=== PATIENT | female | born 2000 | race Caucasian/White ===

== ENCOUNTER 2022-10-21 14:07 | Emergency (ER) | payer BC ==
[2022-10-21 14:48] VITALS: BP 139/96; PULSE 70; RESP 20; TEMP 97.7
[2022-10-21] MEDS ORDERED: SODIUM CHLORIDE 0.9% 1,000 ML IV STA (19:13)
[2022-10-21] MEDS ORDERED: diphenhydrAMINE 50 MG/ML 1 ML VIAL IVP STA (19:13)
[2022-10-21] MEDS ORDERED: KETOROLAC 15 MG/ML 1 ML VIAL IVP STA (19:13)
[2022-10-21] MEDS ORDERED: DEXAMETHASONE SOD PHOSPHATE 10 MG/ML 1 ML VIAL IVP STA (19:13)
[2022-10-21] MEDS ORDERED: METOCLOPRAMIDE 5 MG/ML 2 ML VIAL IVP STA (19:13)
--- NOTE | 2022-10-21 19:15 | ED ---
Headache HPI - General Chief Complaint: Headache Stated Complaint: headache, shoulder pain Time Seen by Provider: 10/21/22 18:59 Source: patient, RN notes reviewed Mode of arrival: ambulatory Limitations: no limitations - History of Present Illness Initial Comments: This is a 22-year-old female who presents to the emergency department for a headache. States that she was at urgent care last night and was given a shot of Toradol. This resolved her symptoms temporarily, however they have since returned. The headache is primarily along the left church. She is unable to describe this pain, but states that it has been fairly persistent over the last several days, which has never happened before. However, she would not describe this as the worst headache of her life. Denies any associated photophobia, nausea, or vomiting. Feels like she has intermittent blurring of her vision in the left eye. She has no history of migraines. The provider at urgent care told her to come to the emergency department if symptoms worsen out of concern for possible temporal arteritis. She also requests evaluation for right shoulder pain that has been occurring intermittently over the last month. She feels like the shoulder keeps going in and out of place. She works at a [employer] and does a lot of bending and lifting. Denies any fevers, chills, sore throat, cough, dyspnea, chest pain, palpitations, abdominal pain, nausea, vomiting, diarrhea, or back pain. MD Complaint: headache Onset/Timin -: days(s) - Related Data Previous Rx's Medication Instructions Recorded dexAMETHasone [Decadron] 6 mg PO DAILY 4 Days #4 tablet 10/21/22 Allergies Allergy/AdvReac Type Severity Reaction Status Date / Time No Known Allergies Allergy Verified 10/21/22 14:47 Review of Systems ROS Statement: Those systems with pertinent positive or pertinent negative responses have been documented in the HPI. ROS Other: All systems not noted in ROS Statement are negative. Past Medical History Past Medical History: No Reported History History of Any Multi-Drug Resistant Organisms: None Reported Past Surgical History: No Surgical Hx Reported Past Psychological History: No Psychological Hx Reported Smoking Status: Vaper Past Alcohol Use History: Occasional Past Drug Use History: Marijuana General Exam Limitations: no limitations General appearance: alert, in no apparent distress Head exam: Present: atraumatic, normocephalic, normal inspection Eye exam: Present: normal appearance, PERRL, EOMI. Absent: scleral icterus, conjunctival injection, periorbital swelling Respiratory exam: Present: normal lung sounds bilaterally. Absent: respiratory distress, wheezes, rales, rhonchi, stridor Cardiovascular Exam: Present: regular rate, normal rhythm, normal heart sounds. Absent: systolic murmur, diastolic murmur, rubs, gallop, clicks Neurological exam: Present: alert, oriented X3, CN II-XII intact Psychiatric exam: Present: normal affect, normal mood Skin exam: Present: warm, dry, intact, normal color. Absent: rash Course Vital Signs 10/21/22 14:43 Temperature 97.7 F Pulse Rate 70 Respiratory 20 Rate Blood Pressure 139/96 O2 Sat by Pulse 98 Oximetry Medical Decision Making - Medical Decision Making This is a 22-year-old female who presents to the emergency department for a headache. Was pt. sent in by a medical professional or institution? @ -No Did you speak to anyone other than the patient for history? @ -No Did you review nursing and triage notes? @ -Agree, accurate with regards to the patient's symptoms. Were old charts reviewed? @ -No Differential Diagnosis? @ -Differential Headache: Migraine, tension, cluster, carbon monoxide, central venous thrombosis, pension karma temporal arteritis, acute closure glaucoma, intercranial hemorrhage, mastoiditis, sinusitis, head injury, this is not meant to be an all-inclusive list. X-rays interpreted by me (1pt min.)? @ -Chest x-ray obtained, my interpretation reveals no localized consolidations or infiltrates. My interpretation of the right shoulder x-ray identifies no acute fractures or dislocations. CT interpreted by me (1pt min.)? @ -CT scan of the brain without contrast obtained. I identify no evidence of acute intracranial hemorrhage. What testing was considered but not performed? (CT, X-rays, U/S, labs)? Why? @ -None What meds were considered but not given? Why? @ -None Did you discuss the management of the patient with other professionals? @ -No Did you reconcile home meds? @ -No Was smoking cessation discussed for >3mins.? @ -No Was critical care preformed (if so, how long)? @ -No Were there social determinants of health that impacted care today? How? (Homele ssness, low income, unemployed, alcoholism, drug addiction, transportation, low edu. Level, literacy, decrease access to med. care, prison, rehab)? @ -No Was there de-escalation of care discussed even if they declined? (Discuss DNR or withdrawal of care, Hospice)? @ -No What co-morbidities impacted this encounter? (DM, HTN, Smoking, COPD, CAD, Cancer, CVA, Hep., AIDS, mental health diagnosis, sleep apnea, morbid obesity)? @ -None Was patient admitted / discharged? @ -Discharged. Lab work obtained and found to be nonactionable, including negative inflammatory markers. Patient was negative for Covid, influenza, and RSV. Given that this was an atypical headache, computed tomography scan of the brain was obtained with my interpretation listed above. The radiologist did make note of what appeared to be a Chiari I malformation on the computed tomography scan of the brain. Findings discussed with the patient. She was given a migraine cocktail consisting of Decadron, Toradol, Reglan, and Benadryl, which she states entirely resolved her symptoms. With regards to the right shoulder pain, x-ray of the chest and right shoulder was obtained with my interpretations listed above. Advised that this is likely an overuse injury and she may benefit from physical therapy or other [id number] medications. Prescription for an additional 4 days of Decadron provided to help both the headache and the shoulder pain. She was given information to follow up with neurosurgery regarding the Chiari I malformation and she was given information for several local primary care providers. She is instructed to become established with one of them for ongoing care. Drug Therapy requiring intensive monitoring for toxicity (Heparin, Nitro, Insuli n, Cardizem)? @ -None Were any procedures done? @ -None Diagnosis/symptom? @ -Headache Acute, or Chronic, or Acute on Chronic? @ -Acute Uncomplicated (without systemic symptoms) or Complicated (systemic symptoms)? @ -Uncomplicated Side effects of treatment? @ -Adverse effects to the decadron. Exacerbation, Progression, or Severe Exacerbation] @ -Not applicable Poses a threat to life or bodily function? @ -May impact bodily function if symptoms become severe enough. Diagnosis/symptom? @ -Right shoulder pain Acute, or Chronic, or Acute on Chronic? @ -Acute Uncomplicated (without systemic symptoms) or Complicated (systemic symptoms)? @ -Uncomplicated Side effects of treatment? @ -Adverse effects to the decadron Exacerbation, Progression, or Severe Exacerbation] @ -Not applicable. Poses a threat to life or bodily function? @ -May impact function if the pain becomes severe enough. Return precautions reviewed in depth, the patient is instructed to return to the emergency department with any new, worsening, or concerning symptoms. Patient verbalized understanding. This case was discussed in detail with the attending ED physician. Presentation, findings, and treatment plan discussed in detail as well. - Lab Data Result diagrams: 10/21/22 19:50 10/21/22 19:50 Lab Results 10/21/22 10/21/22 10/21/22 Range/Units 18:54 19:50 19:50 WBC 6.7 (3.8-10.6) k/uL RBC 4.49 (3.80-5.40) m/uL Hgb 13.7 (11.4-16.0) gm/dL Hct 39.2 (34.0-46.0) % MCV 87.4 (80.0-100.0) fL MCH 30.5 (25.0-35.0) pg MCHC 34.8 (31.0-37.0) g/dL RDW 12.3 (11.5-15.5) % Plt Count 215 (150-450) k/uL MPV 7.9 Neutrophils % 59 % Lymphocytes % 29 % Monocytes % 7 % Eosinophils % 2 % Basophils % 1 % Neutrophils # 3.9 (1.3-7.7) k/uL Lymphocytes # 2.0 (1.0-4.8) k/uL Monocytes # 0.5 (0-1.0) k/uL Eosinophils # 0.2 (0-0.7) k/uL Basophils # 0.1 (0-0.2) k/uL ESR 8 (0-20) mm/hr Sodium 140 (137-145) mmol/L Potassium 3.7 (3.5-5.1) mmol/L Chloride 105 (98-107) mmol/L Carbon Dioxide 26 (22-30) mmol/L Anion Gap 9 mmol/L BUN 11 (7-17) mg/dL Creatinine 0.76 (0.52-1.04) mg/dL Est GFR (CKD-EPI)AfAm >90 (>60 ml/min/1.73 sqM) Est GFR (CKD-EPI)NonAf >90 (>60 ml/min/1.73 sqM) Glucose 94 (74-99) mg/dL Calcium 9.2 (8.4-10.2) mg/dL Total Bilirubin 0.5 (0.2-1.3) mg/dL AST 26 (14-36) U/L ALT 20 (4-34) U/L Alkaline Phosphatase 78 (38-126) U/L C-Reactive Protein <0.5 (<1.0) mg/dL Total Protein 6.9 (6.3-8.2) g/dL Albumin 4.5 (3.5-5.0) g/dL Influenza Type A (PCR) Not Detected (Not Detectd) Influenza Type B (PCR) Not Detected (Not Detectd) RSV (PCR) Not Detected (Not Detectd) SARS-CoV-2 (PCR) Not Detected (Not Detectd) - Radiology Data Radiology results: report reviewed, image reviewed Disposition Clinical Impression: Headache, Chiari malformation type I Disposition: HOME SELF-CARE Instructions (If sedation given, give patient instructions): Acute Headache (ED) Additional Instructions: Return to the emergency department with any new, worsening, or concerning symptoms. Take the Decadron daily for the next [address] Jauregui's office as listed below regarding the Chiari I malformation. Become established with a local primary care provider, several of their offices are listed below. Prescriptions: dexAMETHasone [Decadron] 6 mg PO DAILY 4 Days #4 tablet Is patient prescribed a controlled substance at d/c from ED?: No Referrals: None,Stated [Primary Care Provider] - 1-2 days Chandra Jauregui MD [STAFF PHYSICIAN] - 1-2 days Claudette Hardwick MD [REFERRING] - 1-2 days Chey Link MD [STAFF PHYSICIAN] - 1-2 days Ricci Meadows DO [Doctor of Osteopathic Medicine] - 1-2 days Olamide Rivera DO [REFERRING] - 1-2 days
--- NOTE | 2022-10-21 19:54 | CT ---
EXAMINATION TYPE: CT brain wo con DATE OF EXAM: 10/21/2022 COMPARISON: None. HISTORY: Abnormal acute headache CT DLP: 1099.4 mGycm. Automated Exposure Control for Dose Reduction was Utilized. TECHNIQUE: CT scan of the head is performed without contrast. FINDINGS: There is no acute intracranial hemorrhage, mass effect, or midline shift identified. The ventricles and sulci are within normal limits in size. A white matter differentiation is maintained. There is low-lying right cerebellar tonsil greater than 5 mm below foramen magnum sagittal image 40 consistent with Chiari type I malformation. Nasal septum deviated to right of midline. The globes ar e intact and the visualized sinuses are clear. IMPRESSION: No acute intracranial hemorrhage or midline shift is seen. Chiari type I malformation is present. Nonurgent neurosurgical follow-up advised.
[2022-10-21 19:55] LABS: Basophils # (A) 0.1 k/uL (0-0.2); Basophils % (A) 1 %; Eosinophils # (A) 0.2 k/uL (0-0.7); Eosinophils % (A) 2 %; HCT 39.2 % (34.0-46.0); HGB 13.7 gm/dL (11.4-16.0); Lymphocytes % (A) 29 %; MCH 30.5 pg (25.0-35.0); MCHC 34.8 g/dL (31.0-37.0); MCV 87.4 fL (80.0-100.0); Mean Platelet Volume 7.9; Monocytes # (A) 0.5 k/uL (0-1.0); Monocytes % (A) 7 %; Neutrophils # (A) 3.9 k/uL (1.3-7.7); Neutrophils % (A) 59 %; Platelet Count 215 k/uL (150-450); RBC 4.49 m/uL (3.80-5.40); RDW 12.3 % (11.5-15.5); WBC 6.7 k/uL (3.8-10.6)
--- NOTE | 2022-10-21 20:04 | XR ---
EXAMINATION TYPE: XR chest 2V DATE OF EXAM: 10/21/2022 COMPARISON: NONE HISTORY: Chest pain. TECHNIQUE: Frontal and lateral views of the chest are obtained. FINDINGS: There is no focal air space opacity, pleural effusion, or pneumothorax seen. The cardiac silhouette size is within normal limits. The osseous structures are intact. IMPRESSION: No acute process.
--- NOTE | 2022-10-21 20:05 | XR ---
EXAMINATION TYPE: XR shoulder complete RT DATE OF EXAM: 10/21/2022 CLINICAL HISTORY: Shoulder pain. TECHNIQUE: Three views of the right shoulder are obtained. COMPARISON: None. FINDINGS: There is no acute fracture/dislocation evident in the right shoulder. The acromioclavicul ar and glenohumeral joint spaces appear within normal limits. Distal acromion morphology unremarkable . The visualized ribs are intact. IMPRESSION: Unremarkable study.
[2022-10-21 20:35] LABS: ALT 20 U/L (4-34); AST 26 U/L (14-36); African American GFR (CKD) >90 (>60 ml/min/1.73 sqM); Albumin 4.5 g/dL (3.5-5.0); Alkaline Phosphatase 78 U/L (38-126); Anion Gap 9 mmol/L; Blood Urea Nitrogen 11 mg/dL (7-17); C Reactive Protein <0.5 mg/dL (<1.0); Calcium 9.2 mg/dL (8.4-10.2); Carbon Dioxide 26 mmol/L (22-30); Chloride 105 mmol/L (98-107); Glucose 94 mg/dL (74-99); Non-African American GFR(CKD) >90 (>60 ml/min/1.73 sqM); Potassium 3.7 mmol/L (3.5-5.1); Sodium 140 mmol/L (137-145); Total Bilirubin 0.5 mg/dL (0.2-1.3); Total Protein 6.9 g/dL (6.3-8.2)
[2022-10-21 21:09] LABS: Erythrocyte Sedimentation Rate 8 mm/hr (0-20)
== END 2022-10-21 21:35 | disposition home or self-care (01) ==
LOC: EC 14:07
DX: R51.9 Headache, unspecified (principal); G93.5 Compression of brain; F17.290 Nicotine dependence, other tobacco product, uncomplicated; F12.90 Cannabis use, unspecified, uncomplicated; Z20.822 Contact with and (suspected) exposure to COVID-19
CPT/HCPCS: 36415; 80053; 85652; 85025; 86140; 87636; 73030; 71046; 70450; 99284; 96374; 96375 ×3; 96361 ×2; J1200; J1100; J2765; J1885